=== PATIENT | male | born 1970 | race Caucasian/White ===

== ENCOUNTER → 2017-07-23 | Outpatient (CLI) | payer OTHER ==
[~2017-07-23] MED LIST: BACTRIM,SEPT1 TABLET PO; BENTYL20 MG PO; FLAGYL500 MG PO; HYDROMORPHONE HC2 MG PO; LODINE500 MG PO; LOMOTIL TABLET1 EACH PO; LORTAB 5-325 M1 EACH PO; NORCO 5/3251 TABLET PO; OMEPRAZOLE40 M1 PO; PROZAC40 MG PO; TRAZODONE HCL50 MG PO; VITAMIN B12-FO1 EACH PO; VITAMIN C500 M1 PO; VITAMIN D31000 UNIT PO; XIFAXAN550 MG PO; ZITHROMAX500 MG PO; [UNRECOGNIZED DRUG - CODE] PO; [UNRECOGNIZED DRUG - REMARK]; compazine
== END | disposition home or self-care (01) ==
LOC: CDC 10:16
DX: Z01.810 Encounter for preprocedural cardiovascular examination (principal); M25.521 Pain in right elbow; M77.11 Lateral epicondylitis, right elbow; S56.5 Injury of other extensor muscle, fascia and tendon at forearm level
CPT/HCPCS: 93000

== ENCOUNTER 2017-11-12 12:06 | Emergency (ER) | payer OTHER ==
[~2017-11-12] VITALS: Ht 172.7 cm; Wt 116.7 kg
[2017-11-12 14:56] LABS: HEMATOCRIT 46.5 % (38.0-50.0); MCHC 34.4 G/DL (30.0-36.0); MCV 90.1 FL (86-99); PLATELET COUNT 298 K/uL (156-360); RBC DIS.WIDTH-CV 12.8 % (11.8-14.6); RBC DIS.WIDTH-SD 42.4 % (39-53); RED BLOOD COUNT 5.16 M/uL (4.00-5.50); WHITE BLOOD COUNT 9.4 K/uL (4.1-10.2)
[2017-11-12 15:08] LABS: CHLORIDE 99 mEq/L (99-109); POTASSIUM 3.8 mEq/L (3.7-5.4); SODIUM 137 mEq/L (136-147)
[2017-11-12 15:09] LABS: GLUCOSE 92 mg/dL (70-99)
[2017-11-12 15:13] LABS: GFR ESTIMATE (CALCULATED) > 59 mL/min/ (58.99-99999)
[2017-11-12 15:14] LABS: UREA NITROGEN (BUN) 12 mg/dL (9-23)
[2017-11-12 15:40] LABS: TROP-I INTERPRETATION NEGATIVE; TROPONIN-I < 0.01 ng/mL (0.0-0.30)
[2017-11-12 16:54] VITALS: BP 136/91
== END 2017-11-12 16:55 | disposition home or self-care (01) ==
LOC: EME 12:06
PROVIDERS: Emergency Medicine
DX: R42 Dizziness and giddiness (principal); H53.8 Other visual disturbances; Z87.891 Personal history of nicotine dependence
CPT/HCPCS: 70450; 71046; 80048; 84484; 85027; 93005; 99281; 99284

== ENCOUNTER 2017-12-23 06:46 | Emergency (ER) | payer OTHER ==
[~2017-12-23] VITALS: Ht 172.7 cm; Wt 118.6 kg
[2017-12-23 08:14] VITALS: BP 149/61
== END 2017-12-23 08:16 | disposition home or self-care (01) ==
LOC: EME 06:46
DX: S50.362A Insect bite (nonvenomous) of left elbow, initial encounter (principal); W57.XXXA Bitten or stung by nonvenomous insect and other nonvenomous arthropods, initial encounter; R21 Rash and other nonspecific skin eruption; M79.1 Myalgia; R51 Headache; Z88.0 Allergy status to penicillin; Z72.0 Tobacco use
CPT/HCPCS: 99281; 99283